=== PATIENT | female | born 1975 | race Caucasian/White ===

== ENCOUNTER 2017-03-22 13:46 | Day surgery (SDC) | payer BC, OTHER ==
[~2017-03-22] VITALS: Ht 172.7 cm; Wt 63.0 kg
[~2017-03-22 13:46] MED LIST: BUPIVACAINE/PF 0.5% ONE
[2017-03-22] MEDS ORDERED: LACTATED RINGERS 1,000 ML IV SCH (14:10)
[2017-03-22] MEDS ORDERED: SERT100T PO (14:15)
[2017-03-22] MEDS ORDERED: IBUP-1223 PO (14:15)
[2017-03-22] MEDS ORDERED: HYDR50CA PO (14:15)
[2017-03-22] MEDS ORDERED: OXYC-302 PO (14:15)
[2017-03-22] MEDS ORDERED: CETI10TA24 PO (14:15)
[2017-03-22] MEDS ORDERED: CEPH-368 PO (14:15)
[2017-03-22 14:16] VITALS: BP 105/64
[2017-03-22] MEDS ORDERED: FENTANYL PF 100 MCG/2ML ONE (15:39)
[2017-03-22] MEDS ORDERED: MIDAZOLAM 1 MG/ML, 2ML ONE (15:40)
[2017-03-22 15:51] LABS: HCG UR OBC PASS
[2017-03-22] MEDS ORDERED: CEFAZOLIN 1,000 MG ONE (16:36)
[2017-03-22] MEDS ORDERED: DEXAMETHASONE 4 MG/ML, 1ML ONE (16:36)
[2017-03-22] MEDS ORDERED: PROPOFOL 10 MG/ML, 20ML ONE (16:36)
[2017-03-22] MEDS ORDERED: PROMETHAZINE 25 MG/ML, 1ML IV PRN (17:00)
[2017-03-22] MEDS ORDERED: ACETAMINOPHEN 325 MG TABLET PO PRN (17:00)
[2017-03-22] MEDS ORDERED: ALBUTEROL/IPRATROPIUM 2.5MG/0.5MG, 3 ML NPPB PRN (17:00)
[2017-03-22] MEDS ORDERED: OXYcodone 5 MG/5 ML ORAL.SOL UDC PO PRN (17:00)
[2017-03-22] MEDS ORDERED: hydrALAzine 20 MG/ML, 1ML IV PRN (17:00)
[2017-03-22] MEDS ORDERED: MEPERIDINE/PF 25MG/0.5ML IVPush PRN (17:00)
[2017-03-22] MEDS ORDERED: MIDAZOLAM 1 MG/ML, 2ML IV PRN (17:00)
[2017-03-22] MEDS ORDERED: ONDANSETRON 2MG/ML, 2ML IVPush PRN (17:00)
[2017-03-22] MEDS ORDERED: FENTANYL PF 100 MCG/2ML IV PRN (17:00)
[2017-03-22] MEDS ORDERED: LABETALOL 5MG/ML, 20ML IV PRN (17:00)
[2017-03-22] MEDS ORDERED: HYDROmorphone 1 MG/ML, 1ML IV PRN (17:00)
== END 2017-03-22 19:15 ==
LOC: OR 13:46
PROVIDERS: ATTEND Orthopaedic Surgery
DX: S92.352A Displaced fracture of fifth metatarsal bone, left foot, initial encounter for closed fracture (principal); Z88.1 Allergy status to other antibiotic agents; X58.XXXA Exposure to other specified factors, initial encounter; Y93.89 Activity, other specified; Y92.89 Other specified places as the place of occurrence of the external cause; Y99.8 Other external cause status
CPT/HCPCS: 28485; 73620; 76001; 81025; C1713; J0690; J1100; J2250; J2704; J3010; J3490

== ENCOUNTER 2018-10-24 14:25 | Outpatient (CLI) | payer OTHER ==
[~2018-10-24 14:25] MED LIST changes: -BUPIVACAINE/PF 0.5% ONE; +CEPH-368 PO; +CETI10TA24 PO; +HYDR50CA PO; +IBUP-1223 PO; +OXYC-302 PO; +SERT100T PO
[2018-10-24] MEDS ORDERED: SERT100T PO (15:40)
[2018-10-24] MEDS ORDERED: ALPR-475 PO (15:40)
== END 2018-10-24 23:59 | disposition home or self-care (01) ==
LOC: STAR 14:25
PROVIDERS: ATTEND Orthopaedic Surgery
DX: Z02.9 Encounter for administrative examinations, unspecified (principal)

== ENCOUNTER 2018-10-31 06:55 | Day surgery (SDC) | payer OTHER ==
[~2018-10-31] VITALS: Ht 170.2 cm; Wt 65.4 kg
[~2018-10-31 06:55] MED LIST changes: +ALPR-475 PO
[2018-10-31] MEDS ORDERED: LACTATED RINGERS 1,000 ML IV SCH (07:32)
[2018-10-31 07:36] VITALS: BP 105/71
[2018-10-31 08:05] LABS: HCG UR SG 1.023 (1.003-1.030)
[2018-10-31] MEDS ORDERED: MIDAZOLAM 1 MG/ML, 2ML ONE (08:11)
[2018-10-31] MEDS ORDERED: FENTANYL PF 100 MCG/2ML ONE (08:11)
[2018-10-31] MEDS ORDERED: DEXAMETHASONE 4 MG/ML, 1ML ONE (09:02)
[2018-10-31] MEDS ORDERED: ONDANSETRON 2MG/ML, 2ML ONE (09:02)
[2018-10-31] MEDS ORDERED: BUPIVACAINE/PF 0.5% ONE (09:02)
[2018-10-31] MEDS ORDERED: CEFAZOLIN 1,000 MG ONE (09:02)
[2018-10-31] MEDS ORDERED: PROPOFOL 10 MG/ML, 20ML ONE (09:02)
[2018-10-31] MEDS ORDERED: KETOROLAC 30 MG/1 ML IV PRN (09:30)
[2018-10-31] MEDS ORDERED: ACETAMINOPHEN 325 MG TABLET PO PRN (09:30)
[2018-10-31] MEDS ORDERED: SCOPOLAMINE PATCH, 1.5MG PATCH.TD72 TD PRN (09:30)
[2018-10-31] MEDS ORDERED: OXYcodone 5 MG/5 ML ORAL.SOL UDC PO PRN (09:30)
[2018-10-31] MEDS ORDERED: MIDAZOLAM 1 MG/ML, 2ML IV PRN (09:30)
[2018-10-31] MEDS ORDERED: FENTANYL PF 100 MCG/2ML IV PRN (09:30)
[2018-10-31] MEDS ORDERED: ONDANSETRON 2MG/ML, 2ML IV PRN (09:30)
[2018-10-31] MEDS ORDERED: PROMETHAZINE 25 MG/ML, 1ML IV PRN (09:30)
== END 2018-10-31 11:50 | disposition home or self-care (01) ==
LOC: OUT 06:55
PROVIDERS: ATTEND Orthopaedic Surgery
DX: T84.84XA Pain due to internal orthopedic prosthetic devices, implants and grafts, initial encounter (principal); I25.10 Atherosclerotic heart disease of native coronary artery without angina pectoris; Y82.8 Other medical devices associated with adverse incidents; Y92.89 Other specified places as the place of occurrence of the external cause; Z88.1 Allergy status to other antibiotic agents; Z88.8 Allergy status to other drugs, medicaments and biological substances
CPT/HCPCS: 20680; 64445; 81025; J0690; J1100; J2250; J2405; J2704; J3010; J3490